=== PATIENT | male | born 1985 | race Caucasian/White ===

== ENCOUNTER 2016-11-17 11:47 | Emergency (ER) | payer SELFPAY ==
[~2016-11-17] VITALS: Ht 185.4 cm; Wt 82.0 kg
[2016-11-17 11:48] VITALS: BP 152/99; PULSE 87; RESP 15; TEMP 98.3; O2SAT 99
[2016-11-17 12:57] VITALS: BP 148/99; PULSE 88; RESP 18; O2SAT 99
[2016-11-17] MEDS ORDERED: SODIUM CHLOR 0.9% 1000 ML INJ 1,000 ML IV SCH (13:02)
--- NOTE | 2016-11-17 13:06 | PD ---
HPI Chief Complaint: Abdominal Pain Time Seen by Provider: 13:03 Travel History International Travel<30 days: No Contact w/Intl Traveler<30days: No Traveled to known affect area: No History of Present Illness HPI 31-year-old male presents to the emergency department for evaluation of right- sided abdominal pain for 3 days. The patient states he is here visiting from [place] and that his symptoms began the day before they were supposed to leave to come to [place]. States that 3 days ago he started having pain in his right upper quadrant and right flank. States that he did have some burning with urination and some orange-colored urine at that time as well. States that he attributed this to drinking too many monster energy drinks and not enough water , states that he drinks about 6 Monster drinks a day. States that the pain has been intermittent and worsening. Describes the pain as sharp. Denies any aggravating or alleviating factors. States he has had some nausea but no vomiting. States that he feels as though he is having more frequent bowel movements but that they are normal, not diarrhea, nonbloody. Denies any fever, chills, vomiting, diarrhea, constipation, chest pain, shortness of breath, cough or cold symptoms. Denies any history of abdominal surgeries. Denies alcohol use. Denies any history of kidney stones. No other complaints. [facility] Social History Alcohol Use: No Tobacco Use: Yes Allergies-Medications (Allergen,Severity, Reaction): Coded Allergies: No Known Allergies (Unverified , 11/17/16) Reported Meds & Prescriptions Reported Meds & Active Scripts Active No Active Prescriptions or Reported Medications Review of Systems Except as stated in HPI: all other systems reviewed are Neg Physical Exam Narrative GENERAL: Well-nourished and well-developed pleasant male patient in no acute distress who is nontoxic appearing. SKIN: Warm and dry. HEAD: Normocephalic and atraumatic. EYES: No injection, drainage, or hyphema noted. PERRLA. EOMI. ENT: No nasal drainage noted. Oropharynx is clear. NECK: Supple and the trachea is midline. CARDIOVASCULAR: Regular rate and rhythm. RESPIRATORY: Breath sounds are equal bilaterally with no accessory muscle use, wheezing, rhonchi, or crackles. GASTROINTESTINAL: Mild tenderness to palpation of the epigastric region, right upper quadrant and right flank. Negative McBurney's point. No rebound tenderness or guarding. Abdomen is soft and nondistended. MUSCULOSKELETAL: No obvious deformities, swelling, cyanosis, or ecchymosis is present throughout the upper and lower extremities. Patient has full range of motion without any signs of neurovascular compromise. BACK: Negative CVA tenderness. NEUROLOGICAL: Awake, alert, and oriented. Normal speech and gait. Cranial nerves are grossly intact. Data Data Last Documented VS Vital Signs Date Time Temp Pulse Resp B/P Pulse Ox O2 Delivery O2 Flow Rate FiO2 11/17/16 12:57 88 18 148/99 99 Room Air 11/17/16 11:48 98.3 Orders Complete Blood Count With Diff (11/17/16 12:39) Comprehensive Metabolic Panel (11/17/16 12:39) Urinalysis - C+S If Indicated (11/17/16 12:39) Iv Access Insert/Monitor (11/17/16 12:39) Oxygen Administration (11/17/16 12:39) Oximetry (11/17/16 12:39) Lipase (11/17/16 12:39) Ondansetron Inj (Zofran Inj) (11/17/16 13:15) Sodium Chlor 0.9% 1000 Ml Inj (Ns 1000 M (11/17/16 13:02) Ketorolac Inj (Toradol Inj) (11/17/16 13:15) Us Abdomen Gallbladder (11/17/16 ) Acetaminophen (Tylenol) (11/17/16 14:15) Labs Laboratory Tests Test 11/17/16 13:15 White Blood Count 7.5 TH/MM3 Red Blood Count 5.36 MIL/MM3 Hemoglobin 16.7 GM/DL Hematocrit 47.2 % Mean Corpuscular Volume 88.1 FL Mean Corpuscular Hemoglobin 31.2 PG Mean Corpuscular Hemoglobin 35.5 % Concent Red Cell Distribution Width 12.6 % Platelet Count 259 TH/MM3 Mean Platelet Volume 8.8 FL Neutrophils (%) (Auto) 77.4 % Lymphocytes (%) (Auto) 14.7 % Monocytes (%) (Auto) 6.2 % Eosinophils (%) (Auto) 1.4 % Basophils (%) (Auto) 0.3 % Neutrophils # (Auto) 5.8 TH/MM3 Lymphocytes # (Auto) 1.1 TH/MM3 Monocytes # (Auto) 0.5 TH/MM3 Eosinophils # (Auto) 0.1 TH/MM3 Basophils # (Auto) 0.0 TH/MM3 CBC Comment DIFF FINAL Differential Comment Urine Color YELLOW Urine Turbidity CLEAR Urine pH 8.0 Urine Specific [place] 1.014 Urine Protein NEG mg/dL Urine Glucose (UA) NEG mg/dL Urine Ketones NEG mg/dL Urine Occult Blood NEG Urine Nitrite NEG Urine Bilirubin NEG Urine Urobilinogen LESS THAN 2.0 MG/DL Urine Leukocyte Esterase NEG Urine WBC 1 /hpf Microscopic Urinalysis Comment CULT NOT INDICATED Sodium Level 140 MEQ/L Potassium Level 4.6 MEQ/L Chloride Level 105 MEQ/L Carbon Dioxide Level 30.2 MEQ/L Anion Gap 5 MEQ/L Blood Urea Nitrogen 8 MG/DL Creatinine 0.84 MG/DL Estimat Glomerular Filtration 107 ML/MIN Rate Random Glucose 93 MG/DL Calcium Level 9.0 MG/DL Total Bilirubin 0.4 MG/DL Aspartate Amino Transf 24 U/L (AST/SGOT) Alanine Aminotransferase 33 U/L (ALT/SGPT) Alkaline Phosphatase 65 U/L Total Protein 6.9 GM/DL Albumin 3.4 GM/DL Lipase 87 U/L [facility] Medical Decision Making Medical Screen Exam Complete: Yes Emergency Medical Condition: Yes Differential Diagnosis Nephrolithiasis versus pyelonephritis versus cholecystitis versus gastritis Narrative Course 31-year-old male presents to the emergency department for evaluation of right upper quadrant and right flank pain with nausea for 3 days. Patient is afebrile , vital signs are stable. He does have some tenderness to the epigastric, right upper quadrant and right flank however overall abdominal examination is benign. IV access was obtained, labs were drawn and sent. Patient is administered a liter of fluids, Zofran 4 mg IV and Toradol 30 mg IV. Gallbladder ultrasound has been ordered and is pending. CBC is unremarkable. CMP is unremarkable. Lipase is normal. Urinalysis is unremarkable. Gallbladder ultrasound is negative. Patient has remained stable and without complaint while here in the emergency department. Discussed all findings and results with the patient. Labs are reassuring and imaging is unremarkable. Discussed supportive care and advised follow-up with his PCP. Patient verbalizes understanding and agreement with treatment plan. I discussed the case with my attending physician Dr. Small who is aware of the patients history, physical examination findings, and treatment plan. Diagnosis Primary Impression: Right upper quadrant abdominal pain Referrals: Primary Care Physician Patient Instructions: Abdominal Pain (ED), General Instructions Additional Instructions: Take [id number] ibuprofen or Tylenol. Follow-up with your Primary Care Physician. Return to the ED for any acute worsening of symptoms. Med/Other Pt SpecificInfo: No Change to Meds Scripts No Active Prescriptions or Reported Meds Disposition: 01 DISCHARGE HOME Condition: Stable Deb Corley Nov 17, 2016 13:06
[2016-11-17] MEDS ORDERED: KETOROLAC TROMETHAMINE 30 MG/ML (IVP) VIAL IVP ONE (13:15)
[2016-11-17] MEDS ORDERED: ONDANSETRON HCL 4 MG/2 ML VIAL IVP ONE (13:15)
[2016-11-17 13:47] LABS: AUTOMATED NEUTROPHIL # 5.8 TH/MM3 (1.8-7.7); BASOPHIL % 0.3 % (0.0-2.0); BLOOD, URINE NEG (NEG); EOSINOPHIL # 0.1 TH/MM3 (0-0.4); EOSINOPHIL % 1.4 % (0.0-4.0); GLUCOSE,URINE NEG (NEG); HEMATOCRIT 47.2 % (39.0-51.0); HEMO FLAGS DIFF FINAL; KETONE, URINE NEG (NEG); LYMPH % 14.7 % (9.0-44.0); LYMPHOCYTE # 1.1 TH/MM3 (1.0-4.8); MEAN CELL VOLUME 88.1 FL (80.0-100.0); MEAN CORPUSCULAR HEMOGLOBIN 31.2 PG (27.0-34.0); MEAN CORPUSCULAR HGB CONC 35.5 % (32.0-36.0); MONO % 6.2 % (0.0-8.0); NEUT % 77.4 % (16.0-70.0); NITRITE,URINE NEG (NEG); PLATELET COUNT 259 TH/MM3 (150-450); RED BLOOD COUNT 5.36 MIL/MM3 (4.50-5.90); RED CELL DISTRIBUTION WIDTH 12.6 % (11.6-17.2); URINE COLOR YELLOW (YELLW/STRAW); WHITE BLOOD COUNT 7.5 TH/MM3 (4.0-11.0)
[2016-11-17 13:52] LABS: COMMENT (UR) CULT NOT INDICATED; CULTURE IF INDICATED CULT NOT INDICATED
[2016-11-17 13:59] LABS: ANION GAP 5 MEQ/L (5-15); AST (GOT) 24 U/L (15-37); BICARBONATE 30.2 MEQ/L (21.0-32.0); BLOOD UREA NITROGEN 8 MG/DL (7-18); CHLORIDE 105 MEQ/L (98-107); GLOMERULAR FILTRATION RATE 107 ML/MIN (>89); POTASSIUM 4.6 MEQ/L (3.5-5.1); SODIUM (NA) 140 MEQ/L (136-145)
[2016-11-17 14:03] LABS: ALKALINE PHOSPHATASE 65 U/L (45-117); ALT (GPT) 33 U/L (12-78); TOTAL BILIRUBIN ADULT 0.4 MG/DL (0.2-1.0)
[2016-11-17] MEDS ORDERED: ACETAMINOPHEN 500 MG CPLT PO ONE (14:15)
--- NOTE | 2016-11-17 14:56 | RADRPT ---
EXAM DATE/TIME: 11/17/2016 14:25 [facility] COMPARISON: No previous studies available for comparison. INDICATIONS : Right upper quadrant pain. MEDICAL HISTORY : Right upper quadrant pain. SURGICAL HISTORY : None. ENCOUNTER: Initial ACUITY: 3 days PAIN SCORE: 4/10 LOCATION: Right upper quadrant MEASUREMENTS: LIVER: 20.1 cm length COMMON DUCT: 3 mm RIGHT KIDNEY: 11.8 x 4.7 x 7.0 cm FINDINGS: LIVER: Normal echotexture without focal lesion or ductal dilatation. Main portal vein is patent with hepato pedal blood flow. COMMON DUCT: No intraluminal mass or stone visualized. GALLBLADDER: Contains no stones, demonstrates no wall thickening or pericholecystic fluid. Gallbladder is only pa rtially distended. Patient reports eating a sandwich before coming to the emergency room. PANCREAS: The visualized portions are within normal limits. RIGHT KIDNEY: No evidence of hydronephrosis, stone, or mass. CONCLUSION: 1. No acute finding is identified. Gallbladder is only partially distended due to recent eating. 2. Mild hepatomegaly. Guido Lee MD on November 17, 2016 at 14:53 Board Certified Radiologist. This report was verified electronically.
== END 2016-11-17 15:41 | disposition home or self-care (01) ==
LOC: NEPC 11:47
DX: R10.11 Right upper quadrant pain (principal)
CPT/HCPCS: 76705; 80053; 81001; 83690; 85025; 96361; 96374; 96375; 99284; J1885; J2405; J7030